=== PATIENT | male | born 1975 | race Caucasian/White ===

== ENCOUNTER 2018-10-16 22:11 | Emergency (ER) | payer MEDICAID ==
[~2018-10-16] VITALS: Ht 162.6 cm; Wt 102.3 kg
[2018-10-17 03:45] VITALS: BP 129/77
== END 2018-10-17 04:26 | disposition home or self-care (01) ==
LOC: EMS 22:15
DX: S00.81XA Abrasion of other part of head, initial encounter (principal); I10 Essential (primary) hypertension; F32.9 Major depressive disorder, single episode, unspecified; W45.8XXA Other foreign body or object entering through skin, initial encounter; Y93.89 Activity, other specified; Y92.89 Other specified places as the place of occurrence of the external cause; Y99.8 Other external cause status

== ENCOUNTER 2022-05-28 11:01 | Inpatient (IN) | payer MEDICAID ==
[~2022-05-28] VITALS: Ht 162.6 cm; Wt 103.1 kg
[2022-05-28 12:12] LABS: BASOPHILS % (AUTO) 0.8 % (0.0-2.0); EOSINOPHILS % (AUTO) 0.4 % (1.0-6.0); HEMATOCRIT 43.9 % (41-53); HEMOGLOBIN 14.5 g/dL (13.5-17.5); LYMPHOCYTES # (AUTO) 1.2 K/uL (1.0-4.8); LYMPHOCYTES % (AUTO) 16.3 % (22.0-44.0); MEAN CORPUSCULAR HEMOGLOBIN 29.1 pg (26.0-34.0); MEAN CORPUSCULAR VOLUME 88 fL (80-100); MONOCYTES # (AUTO) 0.6 K/uL (0.1-1.0); MONOCYTES % (AUTO) 7.6 % (2.0-9.0); NEUTROPHILS # (AUTO) 5.6 K/uL (1.8-7.7); NEUTROPHILS % (AUTO) 74.9 % (40.0-70.0); PLATELET COUNT (AUTO) 278 K/uL (150-450); RED BLOOD CELL COUNT(AUTO) 4.98 MIL/uL (4.50-5.90); RED CELL DISTRIBUTION WIDTH 14.6 % (11.5-14.5)
[2022-05-28 12:17] LABS: ANION GAP 9 mmol/L (8-16); CALCIUM, TOTAL 9.6 mg/dL (8.8-10.5); CARBON DIOXIDE 27 mmol/L (22-29); CHLORIDE 104 mmol/L (98-107); CREATININE 0.85 mg/dL (0.60-1.30); GLOMERULAR FILTR. RATE CALC > 60 mL/min (>60); GLUCOSE,RANDOM 131 mg/dL (70-110); POTASSIUM 4.3 mmol/L (3.5-5.1); SODIUM SERUM 140 mmol/L (136-145); UREA NITROGEN, BLOOD 17 mg/dL (7-18)
[2022-05-28 12:24] LABS: ALANINE AMINOTRANSFERASE 44 U/L (12-78); ALBUMIN 3.7 g/dL (3.4-5.0); ALKALINE PHOSPHATASE 148 U/L (46-116); ASPARTATE AMINOTRANSFERASE 26 U/L (15-37); BILIRUBIN,TOTAL 0.3 mg/dL (0.1-1.0); TOTAL PROTEIN, SERUM 7.8 g/dL (6.4-8.2)
[2022-05-28 13:51] LABS: AMPHET/METH SCREEN,URINE NEGATIVE (NEGATIVE); BARBITURATE SCREEN, URINE NEGATIVE (NEGATIVE); BENZODIAZEPINES SCREEN,URINE NEGATIVE (NEGATIVE); CANNABINOID SCREEN,URINE NEGATIVE (NEGATIVE); COCAINE SCREEN,URINE NEGATIVE (NEGATIVE); METHADONE SCREEN, URINE NEGATIVE (NEGATIVE); OPIATE SCREEN,URINE NEGATIVE (NEGATIVE); PHENCYCLIDINE SCREEN,URINE NEGATIVE (NEGATIVE)
[2022-05-29 21:53] LABS: COVID AG,FIA SOURCE NASAL SWAB
[2022-05-30 01:08] VITALS: BP 160/109
[2022-05-30] MEDS ORDERED: PNEUMOCOCCAL VACCINE POLYVALENT 0.5 ML VIAL [PPSV23] IM. ONE (05:15)
[2022-05-30] MEDS ORDERED: INFLUENZA VIRUS VACCINE QVS 2022-23 (6MO+)/PF 60 MCG/0.5 ML SYRINGE IM. ONE (05:15)
[2022-05-30 07:13] VITALS: BP 150/94
[2022-05-30 09:00] VITALS: BP 163/99
[2022-05-30] MEDS: AmLODIPine BESYLATE 5 MG TABLET PO SCH (09:00)
[2022-05-30 16:48] VITALS: BP 150/85
[2022-05-30 21:03] VITALS: BP 139/77
[2022-05-31 08:00] VITALS: BP 143/98
[2022-05-31] MEDS: AmLODIPine BESYLATE 5 MG TABLET PO SCH (09:24)
[2022-05-31] MEDS ORDERED: ZOLPIDEM TARTRATE 10 MG TABLET PO PRN (10:15)
[2022-05-31] MEDS: SERTRALINE HCL 50 MG TABLET PO SCH (11:02)
[2022-05-31] MEDS: LORazepam 2 MG TABLET PO PRN ×2 (11:02→21:05)
[2022-05-31] MEDS ORDERED: ONDANSETRON HCL 4 MG TABLET PO PRN (11:30)
[2022-05-31] MEDS ORDERED: ALBUTEROL SULFATE HFA 90 MCG/PUFF 8 GM INHALER IH PRN (11:30)
[2022-05-31] MEDS ORDERED: MAGNESIUM HYDROXIDE SUSPENSION 30 ML UDCUP PO PRN (11:30)
[2022-05-31] MEDS ORDERED: PETROLATUM,WHITE 28 GM JELLY TP PRN (11:30)
[2022-05-31] MEDS ORDERED: IBUPROFEN 400 MG TABLET PO PRN (11:30)
[2022-05-31] MEDS ORDERED: LOPERAMIDE HCL 2 MG CAPSULE PO PRN (11:30)
[2022-05-31] MEDS ORDERED: NICOTINE 14 MG/24 HOUR PATCH TD PRN (11:30)
[2022-05-31] MEDS ORDERED: MAG HYDROX/AL HYDROX/SIMETH ES 30 ML SUSPENSION UDCUP PO PRN (11:30)
[2022-05-31] MEDS ORDERED: CloNIDine HCL 0.1 MG TABLET PO PRN (11:30)
[2022-05-31] MEDS ORDERED: ACETAMINOPHEN 325 MG TABLET PO PRN (11:30)
[2022-05-31] MEDS ORDERED: DOCUSATE SODIUM 100 MG CAPSULE PO PRN (11:30)
[2022-05-31] MEDS ORDERED: GuaiFENesin/D-METHORPHAN [SUGAR-FREE] 200-20MG/10 ML SYRUP UDCUP PO PRN (11:30)
[2022-05-31 16:00] VITALS: BP 156/87
[2022-05-31] MEDS: HALOPERIDOL 5 MG TABLET PO PRN (21:05)
[2022-05-31 21:21] VITALS: BP 133/82
[2022-06-01 08:00] VITALS: BP 165/79
[2022-06-01] MEDS: AmLODIPine BESYLATE 5 MG TABLET PO SCH (09:56)
[2022-06-01] MEDS: SERTRALINE HCL 50 MG TABLET PO SCH (09:56)
[2022-06-01 16:22] VITALS: BP 138/85
[2022-06-01] MEDS: HALOPERIDOL 5 MG TABLET PO PRN (21:03)
[2022-06-01] MEDS: LORazepam 2 MG TABLET PO PRN (21:03)
[2022-06-01 21:09] VITALS: BP 153/87
[2022-06-02] MEDS: SERTRALINE HCL 50 MG TABLET PO SCH (08:53)
[2022-06-02] MEDS: AmLODIPine BESYLATE 5 MG TABLET PO SCH (08:53)
[2022-06-02 09:27] VITALS: BP 158/61
[2022-06-02 16:20] VITALS: BP 121/73
[2022-06-02 20:56] VITALS: BP 139/90
[2022-06-03 08:30] VITALS: BP 151/86
[2022-06-03] MEDS: SERTRALINE HCL 50 MG TABLET PO SCH (08:57)
[2022-06-03] MEDS: AmLODIPine BESYLATE 5 MG TABLET PO SCH (08:57)
[2022-06-03] MEDS: LORazepam 2 MG TABLET PO PRN ×2 (14:14→21:06)
[2022-06-03 16:26] VITALS: BP 161/80
[2022-06-03] MEDS: HALOPERIDOL 5 MG TABLET PO PRN (21:06)
[2022-06-03 21:39] VITALS: BP 137/78
[2022-06-04] MEDS: AmLODIPine BESYLATE 5 MG TABLET PO SCH (08:09)
[2022-06-04] MEDS: SERTRALINE HCL 50 MG TABLET PO SCH (08:09)
[2022-06-04 08:36] VITALS: BP 134/89
[2022-06-04] MEDS: LORazepam 2 MG TABLET PO PRN ×2 (12:14→20:49)
[2022-06-04 16:16] VITALS: BP 151/73
[2022-06-04] MEDS: HALOPERIDOL 5 MG TABLET PO PRN (20:49)
[2022-06-04 22:39] VITALS: BP 154/95
[2022-06-05 06:50] LABS: COVID AG,FIA SOURCE NASAL SWAB
[2022-06-05] MEDS: AmLODIPine BESYLATE 5 MG TABLET PO SCH (08:27)
[2022-06-05] MEDS: SERTRALINE HCL 50 MG TABLET PO SCH (08:27)
[2022-06-05 09:55] VITALS: BP 141/83
[2022-06-05] MEDS ORDERED: SERT-439 PO (10:46)
[2022-06-05] MEDS ORDERED: AMLO-257 PO (10:46)
== END 2022-06-05 17:17 | disposition home or self-care (01) | DRG 751 ==
LOC: EMS 11:04 → 3EI 05-29 16:17
PROVIDERS: ADMIT Psychiatry & Neurology Psychiatry; ATTEND Psychiatry & Neurology Psychiatry
DX: F33.2 Major depressive disorder, recurrent severe without psychotic features (principal); R45.851 Suicidal ideations; M17.12 Unilateral primary osteoarthritis, left knee; I10 Essential (primary) hypertension; Z20.822 Contact with and (suspected) exposure to COVID-19; R73.9 Hyperglycemia, unspecified; Z79.899 Other long term (current) drug therapy; Z98.1 Arthrodesis status; Z59.00 Homelessness unspecified
CPT/HCPCS: 80053; 80307; 85025; 99285; G0480

== ENCOUNTER 2024-02-28 21:46 | Emergency (ER) | payer MEDICAID, OTHER ==
[~2024-02-28] VITALS: Ht 162.6 cm; Wt 106.8 kg
[~2024-02-28 21:46] MED LIST: AMLO-257 PO; SERT-439 PO
[2024-02-28 23:28] LABS: BASOPHILS % (AUTO) 0.9 % (0.0-2.0); HEMATOCRIT 41.7 % (41-53); HEMOGLOBIN 13.6 g/dL (13.5-17.5); LYMPHOCYTES # (AUTO) 1.3 K/uL (1.0-4.8); LYMPHOCYTES % (AUTO) 20.3 % (22.0-44.0); MEAN CORPUSCULAR HEMOGLOBIN 28.4 pg (26.0-34.0); MEAN CORPUSCULAR HGB CONC 32.6 G/dL (31.0-37.0); MEAN CORPUSCULAR VOLUME 87 fL (80-100); MONOCYTES # (AUTO) 0.7 K/uL (0.1-1.0); MONOCYTES % (AUTO) 10.2 % (2.0-9.0); NEUTROPHILS # (AUTO) 4.4 K/uL (1.8-7.7); NEUTROPHILS % (AUTO) 67.6 % (40.0-70.0); PLATELET COUNT (AUTO) 256 K/uL (150-450); RED BLOOD CELL COUNT(AUTO) 4.79 MIL/uL (4.50-5.90); RED CELL DISTRIBUTION WIDTH 16.3 % (11.5-14.5); WHITE BLOOD COUNT (AUTO) 6.5 K/uL (4.5-11.0)
[2024-02-28 23:35] LABS: COVID AG,FIA SOURCE NASAL SWAB
[2024-02-28 23:44] LABS: ANION GAP 5 mmol/L (8-16); CALCIUM, TOTAL 9.2 mg/dL (8.8-10.5); CARBON DIOXIDE 31 mmol/L (22-29); CHLORIDE 98 mmol/L (98-107); CREATININE 0.96 mg/dL (0.60-1.30); GLOMERULAR FILTR. RATE CALC > 60 mL/min (>60); POTASSIUM 4.4 mmol/L (3.5-5.1); SODIUM SERUM 134 mmol/L (136-145); UREA NITROGEN, BLOOD 16 mg/dL (7-18)
[2024-02-28 23:46] LABS: SARS-COV2 (COVID) ANTIGEN,FIA Negative (Negative)
[2024-02-28 23:48] LABS: ALCOHOL, BLOOD (SERUM) < 3 mg/dL (0-10)
[2024-02-28 23:49] LABS: B-TYPE NATRIURETIC PEPTIDE 9 pg/mL (0-100)
[2024-02-28 23:50] LABS: GLUCOSE,RANDOM 432 mg/dL (70-110)
[2024-02-29] MEDS: VANCOMYCIN 1GM/WATER(PEG/NADA) 200 ML IV ONE (00:46)
[2024-02-29] MEDS: PIPERACILLIN/TAZO 3.375 GM/D5W 50 ML IV ONE (00:47)
[2024-02-29] MEDS: SODIUM CHLORIDE 0.9% 1,000 ML IV ONE (00:48)
[2024-02-29] MEDS: INSULIN REGULAR, HUMAN 100 UNITS/ML IVP ONE (00:54)
[2024-02-29 01:03] LABS: AMPHET/METH SCREEN,URINE NEGATIVE (NEGATIVE); BARBITURATE SCREEN, URINE NEGATIVE (NEGATIVE); BENZODIAZEPINES SCREEN,URINE NEGATIVE (NEGATIVE); CANNABINOID SCREEN,URINE NEGATIVE (NEGATIVE); COCAINE SCREEN,URINE NEGATIVE (NEGATIVE); METHADONE SCREEN, URINE NEGATIVE (NEGATIVE); OPIATE SCREEN,URINE NEGATIVE (NEGATIVE); PHENCYCLIDINE SCREEN,URINE NEGATIVE (NEGATIVE)
[2024-02-29 01:06] LABS: LACTIC ACID 1.5 mmol/L (0.4-2.0)
[2024-02-29 01:18] LABS: ALCOHOL, URINE DRUG SCREEN NEGATIVE (NEGATIVE)
[2024-02-29] MEDS ORDERED: DOXY-354 PO (03:57)
[2024-02-29 04:11] VITALS: BP 145/75; PULSE 79; RESP 18; TEMP 98.3; O2SAT 96
== END 2024-02-29 04:11 | disposition home or self-care (01) ==
LOC: EMS 21:47
DX: L03.116 Cellulitis of left lower limb (principal); R73.9 Hyperglycemia, unspecified; F32.A Depression, unspecified; F41.9 Anxiety disorder, unspecified; Z79.899 Other long term (current) drug therapy; Z20.822 Contact with and (suspected) exposure to COVID-19
CPT/HCPCS: 99284; 87426; 80048; 83605; 83880; 85025; 87040; 80307; 96365; 96375; 96368; 36415; G0480; J1815; J2543; J7030; J3490